=== PATIENT | female | born 1985 | race Caucasian/White ===

== ENCOUNTER 2017-08-17 16:45 | Inpatient (IN) | payer BC ==
[2017-08-17 18:35] LABS: ABS Basophils 0.1 10^3/ul (0-0.2); ABS Eosinophils 0.2 10^3/ul (0-0.6); ABS Lymphocytes 2.4 10^3/ul (1.0-4.8); ABS Monocytes 0.7 10^3/ul (0-0.8); ABS Neutrophils 4.1 10^3/ul (1.5-7.7); ABS Nucleated RBC 0 10^3/ul; Eosinophil % 2.4 % (0-6); Hematocrit 46 % (35-47); Hemoglobin 15.5 g/dl (12.0-16.0); Lymphocyte % 32.2 % (25-47); Mean Corpuscular HGB Conc 34 g/dl (31-36); Mean Corpuscular Hemoglobin 31 pg (27-31); Mean Corpuscular Volume 92 fL (80-97); Mean Platelet Volume 8 um3 (7.4-10.4); Nucleated Red Blood Cells % 0.1; Platelet Count 297 10^3/ul (150-450); Red Blood Count 4.97 10^6/ul (4.0-5.4); Red Cell Distribution Width 13 % (10.5-15); White Blood Count 7.4 10^3/ul (3.5-10.8)
[2017-08-17 18:56] LABS: EGFR Non-African American 68.2 (>60)
[2017-08-17 19:24] LABS: Urine Appearance Cloudy; Urine Blood Negative (Negative); Urine Color Yellow; Urine Ketones Negative (Negative); Urine Protein Negative (Negative); Urine Specific Gravity 1.016 (1.010-1.030); Urine Urobilinogen Negative (Negative)
--- NOTE | 2017-08-17 20:12 | ED ---
Psychiatric Complaint - HPI Summary HPI Summary: Patient presents to the ED after she spoke with her therapist about a recent suicide attempt approximately 36 hours ago. She states she took 3 Ativan and drink half a bottle of whiskey and attempts to commit suicide, but states she was just depressed and does not feel that way currently. She states this was her "backup plan" for several years and now noticed that it doesn't work. She told her therapist this afternoon of what she did and requested a meeting with her. She then states she fell asleep so the therapist was unable to text her back, so called the police. They brought her here for an evaluation. She denies any suicidal ideations, HI, self-harm. She has never attempted suicide in the past. History of depression and anxiety. She was prescribed the Ativan a year ago and is not on it regularly. She denies any health problems or concerns. She refuses to talk about extra stressors as she is extremely tearful on exam and is requesting her phone to call her aunt. - History Of Current Complaint Chief Complaint: EDMentalHealth Time Seen by Provider: 08/17/17 17:33 Hx Obtained From: Patient Hx Last Menstrual Period: IUD ?: No Onset/Duration: Sudden Onset Timing: Constant Severity Initially: Moderate Severity Currently: Moderate Character: Depressed, Anxious, Frustrated Aggravating Factor(s): Recent Stress Alleviating Factor(s): Counseling Has Suicidal: Reports: Thoughts, With A Plan, Demonstrates Gesture - Overdose on alcohol and Ativan Ingestion History: Type/Name Of Drug - Ativan, Amount Ingested - 3 tabs Ativan and half bottle whiskey, Approximate Time Of Ingestion - 36 hours ago - Risk Factor(s) Completed Suicide Risk Factors: Negative - Allergies/Home Medications Allergies/Adverse Reactions: Allergies Allergy/AdvReac Type Severity Reaction Status Date / Time MS Penicillins [Penicillins] Allergy Rash Verified 08/16/15 14:49 PMH/Surg Hx/FS Hx/Imm Hx Previously Healthy: Yes Endocrine/Hematology History: Denies: Hx Diabetes Cardiovascular History: Denies: Hx Hypertension, Hx Pacemaker/ICD History: Denies: Hx Renal Disease Sensory History: Denies: Hx Hearing Aid Psychiatric History: Denies: Hx Panic Disorder - Surgical History Surgery Procedure, Year, and Place: wisdom teeth 2000, SINUS SURGERY 1994 - Immunization History Hx Pertussis Vaccination: No Immunizations Up to Date: Unable to Obtain/Confirm Infectious Disease History: No Infectious Disease History: Denies: Hx Clostridium Difficile, Hx Hepatitis, Hx Human Immunodeficiency Virus (HIV), Hx of Known/Suspected MRSA, Hx Shingles, Hx Tuberculosis, Hx Known/ Suspected VRE, Hx Known/Suspected VRSA, History Other Infectious Disease, Traveled Outside the [place] in Last 30 Days - Family History Known Family History: Positive: None - Social History Occupation: Employed Full-time Lives: With Family Alcohol Use: Occasionally Hx Substance Use: Yes Substance Use Type: Reports: Prescribed Substance Use Comment - Amount & Last Used: xanax Hx Tobacco Use: Yes Smoking Status (MU): Never Smoked Tobacco Review of Systems Constitutional: Negative Negative: Fever, Chills, Fatigue, Skin Diaphoresis Eyes: Negative Cardiovascular: Negative Gastrointestinal: Negative Genitourinary: Negative Positive: no symptoms reported, see HPI Musculoskeletal: Negative Neurological: Negative Positive: Anxious, Depressed All Other Systems Reviewed And Are Negative: Yes Physical Exam Triage Information Reviewed: Yes Vital Signs On Initial Exam: Initial Vitals Temp Pulse Resp BP Pulse Ox 99 F 94 18 117/78 96 08/17/17 16:55 08/17/17 16:55 08/17/17 16:55 08/17/17 16:55 08/17/17 16:55 Vital Signs Reviewed: Yes Appearance: Positive: Well-Nourished - Patient is in distress and is to very tearful Skin: Positive: Warm, Skin Color Reflects Adequate Perfusion Head/Face: Positive: Normal Head/Face Inspection Neck: Positive: Supple, Nontender, No Lymphadenopathy Respiratory/Lung Sounds: Positive: Clear to Auscultation, Breath Sounds Present Cardiovascular: Positive: Normal Neurological: Positive: Sensory/Motor Intact, Alert, Oriented to Person Place, Time Psychiatric: Positive: Anxious, Depressed, Patient Uncooperative for Exam - Patient is extremely tearful AVPU Assessment: Alert Diagnostics - Vital Signs Vital Signs Temp Pulse Resp BP Pulse Ox 08/17/17 16:55 99 F 94 18 117/78 96 - Laboratory Lab Results: Lab Results 08/17/17 08/17/17 08/17/17 Range/Units 18:10 18:10 19:03 WBC 7.4 (3.5-10.8) 10^3/ul RBC 4.97 (4.0-5.4) 10^6/ul Hgb 15.5 (12.0-16.0) g/dl Hct 46 (35-47) % MCV 92 (80-97) fL MCH 31 (27-31) pg MCHC 34 (31-36) g/dl RDW 13 (10.5-15) % Plt Count 297 (150-450) 10^3/ul MPV 8 (7.4-10.4) um3 Neut % (Auto) 55.2 (38-83) % Lymph % (Auto) 32.2 (25-47) % [place] % (Auto) 9.1 H (1-9) % Eos % (Auto) 2.4 (0-6) % Baso % (Auto) 1.1 (0-2) % Absolute Neuts (auto) 4.1 (1.5-7.7) 10^3/ul Absolute Lymphs (auto) 2.4 (1.0-4.8) 10^3/ul Absolute Monos (auto) 0.7 (0-0.8) 10^3/ul Absolute Eos (auto) 0.2 (0-0.6) 10^3/ul Absolute Basos (auto) 0.1 (0-0.2) 10^3/ul Absolute Nucleated RBC 0 10^3/ul Nucleated RBC % 0.1 Sodium 138 (133-145) mmol/L Potassium 3.9 (3.5-5.0) mmol/L Chloride 103 (101-111) mmol/L Carbon Dioxide 29 (22-32) mmol/L Anion Gap 6 (2-11) mmol/L BUN 14 (6-24) mg/dL Creatinine 0.96 H (0.51-0.95) mg/dL Est GFR ( Amer) 87.8 (>60) Est GFR (Non-Af Amer) 68.2 (>60) BUN/Creatinine Ratio 14.6 (8-20) Glucose 76 (70-100) mg/dL Calcium 9.5 (8.6-10.3) mg/dL Total Bilirubin 0.60 (0.2-1.0) mg/dL AST 13 (13-39) U/L ALT 14 (7-52) U/L Alkaline Phosphatase 42 (34-104) U/L Total Protein 7.3 (6.4-8.9) g/dL Albumin 4.2 (3.2-5.2) g/dL Globulin 3.1 (2-4) g/dL Albumin/Globulin Ratio 1.4 (1-3) TSH 1.88 (0.34-5.60) mcIU/mL Urine Color Urine Appearance Urine pH (5-9) Ur Specific [place] (1.010-1.030) Urine Protein (Negative) Urine Ketones (Negative) Urine Blood (Negative) Urine Nitrate (Negative) Urine Bilirubin (Negative) Urine Urobilinogen (Negative) Ur Leukocyte Esterase (Negative) Urine WBC (Auto) (Absent) Urine RBC (Auto) (Absent) Ur Squamous Epith Cells (Absent) Urine Bacteria (Absent) Urine Glucose (Negative) Salicylates < 2.50 (<30) mg/dL Urine Opiates Screen None detected (None Detect) Acetaminophen < 15 mcg/mL Ur Barbiturates Screen None detected (None Detect) Ur Phencyclidine Scrn None detected (None Detect) Ur Amphetamines Screen None detected (None Detect) U Benzodiazepines Scrn Presumptive positive H (None Detect) Urine Cocaine Screen None detected (None Detect) U Cannabinoids Screen None detected (None Detect) Serum Alcohol < 10 (<10) mg/dL 08/17/17 Range/Units 19:03 WBC (3.5-10.8) 10^3/ul RBC (4.0-5.4) 10^6/ul Hgb (12.0-16.0) g/dl Hct (35-47) % MCV (80-97) fL MCH (27-31) pg MCHC (31-36) g/dl RDW (10.5-15) % Plt Count (150-450) 10^3/ul MPV (7.4-10.4) um3 Neut % (Auto) (38-83) % Lymph % (Auto) (25-47) % [place] % (Auto) (1-9) % Eos % (Auto) (0-6) % Baso % (Auto) (0-2) % Absolute Neuts (auto) (1.5-7.7) 10^3/ul Absolute Lymphs (auto) (1.0-4.8) 10^3/ul Absolute Monos (auto) (0-0.8) 10^3/ul Absolute Eos (auto) (0-0.6) 10^3/ul Absolute Basos (auto) (0-0.2) 10^3/ul Absolute Nucleated RBC 10^3/ul Nucleated RBC % Sodium (133-145) mmol/L Potassium (3.5-5.0) mmol/L Chloride (101-111) mmol/L Carbon Dioxide (22-32) mmol/L Anion Gap (2-11) mmol/L BUN (6-24) mg/dL Creatinine (0.51-0.95) mg/dL Est GFR ( Amer) (>60) Est GFR (Non-Af Amer) (>60) BUN/Creatinine Ratio (8-20) Glucose (70-100) mg/dL Calcium (8.6-10.3) mg/dL Total Bilirubin (0.2-1.0) mg/dL AST (13-39) U/L ALT (7-52) U/L Alkaline Phosphatase (34-104) U/L Total Protein (6.4-8.9) g/dL Albumin (3.2-5.2) g/dL Globulin (2-4) g/dL Albumin/Globulin Ratio (1-3) TSH (0.34-5.60) mcIU/mL Urine Color Yellow Urine Appearance Cloudy Urine pH 6.0 (5-9) Ur Specific [place] 1.016 (1.010-1.030) Urine Protein Negative (Negative) Urine Ketones Negative (Negative) Urine Blood Negative (Negative) Urine Nitrate Negative (Negative) Urine Bilirubin Negative (Negative) Urine Urobilinogen Negative (Negative) Ur Leukocyte Esterase 1+ H (Negative) Urine WBC (Auto) 1+(6-10/hpf) H (Absent) Urine RBC (Auto) Trace(0-2/hpf) (Absent) Ur Squamous Epith Cells Present H (Absent) Urine Bacteria 1+ H (Absent) Urine Glucose Negative (Negative) Salicylates (<30) mg/dL Urine Opiates Screen (None Detect) Acetaminophen mcg/mL Ur Barbiturates Screen (None Detect) Ur Phencyclidine Scrn (None Detect) Ur Amphetamines Screen (None Detect) U Benzodiazepines Scrn (None Detect) Urine Cocaine Screen (None Detect) U Cannabinoids Screen (None Detect) Serum Alcohol (<10) mg/dL Result Diagrams: 08/17/17 18:10 08/17/17 18:10 Lab Statement: Any lab studies that have been ordered have been reviewed, and results considered in the medical decision making process. Course/Dx - Course Course Of Treatment: During the course of treatment patient is extremely tearful on exam and states she feels "fine" and denies any suicidal ideations. She states she was just depressed and did it out of a rage of depression. She requests her phone to call her aunt and to make sure her cats are taken care of. I stated that she could have her phone for 5 minutes. Labs are unremarkable UA shows benzodiazepine which is consistent with her Ativan usage. She is okay for MHU at this time. Intake counselor spoke with Dr. Lopez who recommends admission to [facility]. Patient is admitted at this time. - Differential Dx/Clinical Impression Differential Diagnosis/HQI/PQRI: Positive: Anxiety, Depression Provider Diagnosis: Suicide attempt Discharge - Discharge Plan Condition: Stable Disposition: ADMITTED TO [facility] Referrals: Racquel Pedroza MD [Primary Care Provider] -
[2017-08-18] MEDS ORDERED: Al Hydrox/Mg Hydrox/Simet LIQ* 30 ML UDC PO PRN (16:47)
[2017-08-18] MEDS ORDERED: Acetaminophen TAB* 325 MG PO PRN (16:47)
[2017-08-18] MEDS: Sertraline* 50 MG TAB PO SCH (17:47)
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
[2017-08-19] MEDS: Vitamin THERAPEUTIC TAB PO SCH (09:08)
[2017-08-19] MEDS: Sertraline* 50 MG TAB PO SCH (09:08)
[2017-08-20] MEDS: Sertraline* 50 MG TAB PO SCH (07:56)
[2017-08-20] MEDS: Vitamin THERAPEUTIC TAB PO SCH (07:56)
[2017-08-20 10:15] VITALS: BP 124/72
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
[2017-08-21] MEDS: Vitamin THERAPEUTIC TAB PO SCH (07:55)
[2017-08-21] MEDS: Sertraline* 50 MG TAB PO SCH (07:55)
--- NOTE | 2017-08-21 12:08 | PN ---
Plan - Plan Treatment Plan: Name: XIMENA KURTZ Birthdate: 1985 [id number] Medications: Current Medications Acetaminophen (Tylenol Tab*) 650 mg PO Q4H PRN PRN Reason: for pain; or Temp >101 F Al Hydrox/Mg Hydrox/Simethicone (Maalox Plus*) 30 ml PO Q4H PRN PRN Reason: INDIGESTION Multivitamins (Theragran Tab*) 1 tab PO DAILY [facility] Last Admin: 08/21/17 07:55 Dose: 1 tab Sertraline HCl (Zoloft*) 50 mg PO DAILY [facility] Last Admin: 08/21/17 07:55 Dose: 50 mg
[2017-08-21] MEDS ORDERED: Sertraline* 100 MG TAB PO SCH (12:23)
[2017-08-21] MEDS ORDERED: Temazepam CAP* 15 MG PO PRN (12:24)
--- NOTE | 2017-08-21 13:14 | PN ---
[facility]: Group Therapy Note - Service Type Service Type: 00068 Group Psychotherapy - Cognitive Behavioral Group Therapy ( CBT):Patient was attentive and participatory in CBT programming this morning, and remained in good behavioral control. Patient expressed positive insights regarding relevant treatment interventions and goals.
--- NOTE | 2017-08-21 17:07 | DCNOTE ---
Discharge Planning - Discharge Planning Medications: Current Medications Acetaminophen (Tylenol Tab*) 650 mg PO Q4H PRN PRN Reason: for pain; or Temp >101 F Al Hydrox/Mg Hydrox/Simethicone (Maalox Plus*) 30 ml PO Q4H PRN PRN Reason: INDIGESTION Multivitamins (Theragran Tab*) 1 tab PO DAILY [facility] Last Admin: 08/21/17 07:55 Dose: 1 tab Sertraline HCl (Zoloft*) 100 mg PO DAILY [facility] Temazepam (Restoril Cap*) 15 mg PO BEDTIME PRN PRN Reason: INSOMNIA Discharge Planning: Prescriptions provided for discharge [] Yes [] No Follow up care details as per social work arrangements. Patient response to discharge plan: [] eager for discharge [] agreeable with discharge plan [] ambivalent about discharge [] disagrees with discharge today
== END 2017-08-21 17:50 | disposition home or self-care (01) | DRG 751 ==
LOC: ED 16:45 → BSU 08-18 04:15
PROVIDERS: ADMIT Psychiatry & Neurology Psychiatry; ATTEND Psychiatry & Neurology Psychiatry
PROC: GZHZZZZ Group Psychotherapy (ICD-10-PCS; principal; 2017-08-21)
DX: F33.1 Major depressive disorder, recurrent, moderate (principal); F41.1 Generalized anxiety disorder; T42.4X2A Poisoning by benzodiazepines, intentional self-harm, initial encounter; T51.92XA Toxic effect of unspecified alcohol, intentional self-harm, initial encounter; Z62.819 Personal history of unspecified abuse in childhood; Z88.0 Allergy status to penicillin; Y92.009 Unspecified place in unspecified non-institutional (private) residence as the place of occurrence of the external cause; Z72.89 Other problems related to lifestyle; Z81.8 Family history of other mental and behavioral disorders
CPT/HCPCS: 36415; 80053; 80307; 80320; 80329; 81003; 81015; 84443; 85025; 87086; 90853; 96102; 99222; 99231; 99238; A9270-GY; G0480